=== PATIENT | male | born 1945 | race Caucasian/White ===

== ENCOUNTER 2023-08-25 09:12 | Outpatient (CLI) | payer OTHER, MEDICARE ==
[~2023-08-25 09:12] MED LIST: ASPI-10 PO; BUDE10.2 INH; CARV-50 PO; CHOL100017 PO; EMPA25TA PO; FURO-150 PO; GUAI100L37 PO; IODIXANOL 320 MG/ML INFUS..BTL 100ML IV ONE; IPRA4AER IH; KRIL1CAP21 PO; RIVA20TA PO; SACU1TAB7 PO; TAM75C PO; UBID200C18 PO
[2023-08-25 10:08] LABS: BASOPHILS % (AUTO) 0.8 % (0-1); EOSINOPHILS # (AUTO) 0.1 X10'3 (0-0.9); EOSINOPHILS % (AUTO) 2.3 % (0-6); HEMATOCRIT 42.6 % (42.0-52.0); HEMOGLOBIN 14.2 g/dl (14.0-17.9); LYMPHOCYTES # (AUTO) 1.1 X10'3 (1.1-4.8); LYMPHOCYTES % (AUTO) 19.2 % (21-51); MEAN CORPUSCULAR HEMOGLOBIN 30.3 PG (27.0-31.0); MEAN CORPUSCULAR HGB CONC 33.3 g/dL (33.0-36.5); MEAN CORPUSCULAR VOLUME 91.1 FL (78-98); MONOCYTES # (AUTO) 0.7 X10'3 (0-0.9); MONOCYTES % (AUTO) 12.1 % (2-12); NEUTROPHILS # (AUTO) 3.6 X10'3 (1.8-7.7); NEUTROPHILS % (AUTO) 65.6 % (42-75); PLATELET COUNT 201 X10'3 (140-440); RED BLOOD COUNT 4.68 X10'6 (4.70-6.10); RED CELL DISTRIBUTION WIDTH 15.3 % (11.5-14.5); WHITE BLOOD COUNT 5.5 X10'3 (4.5-11.0)
[2023-08-25] MEDS ORDERED: iohexol 350MG/ML 100ml bottle IV ONE (10:10)
[2023-08-25 10:17] LABS: APTT 42 SECONDS (22-32); INR 1.4 INR; PROTHROMBIN TIME 14.5 SECONDS (9.0-12.0)
[2023-08-25 10:18] LABS: ALANINE AMINOTRANSFERASE 30 U/L (12-78); ALBUMIN 3.4 G/DL (3.4-5.0); ALKALINE PHOSPHATASE 52 IU/L (46-116); ANION GAP 12 (8-16); ASPARTATE AMINO TRANSFERASE 20 U/L (10-37); BILIRUBIN,TOTAL 0.9 MG/DL (0.1-1.0); BLOOD UREA NITROGEN 16 MG/DL (7-18); BUN/CREATININE RATIO 18.6 (10.0-20.0); CALCIUM 8.3 MG/DL (8.5-10.1); CHLORIDE 105 MMOL/L (99-107); CREATININE 0.86 MG/DL (0.60-1.10); GLUCOSE 101 MG/DL (70-104); POTASSIUM 4.4 MMOL/L (3.5-5.1); SODIUM 142 MMOL/L (135-145); TOTAL PROTEIN 6.9 G/DL (6.4-8.2); eGFR 87 ML/MIN
[2023-09-19] MEDS ORDERED: MOME13HF8 INH (10:40)
[2023-09-19] MEDS ORDERED: ASCO500C17 PO (10:40)
[2023-09-19] MEDS ORDERED: ZINC220T3 PO (10:40)
[2023-09-19] MEDS ORDERED: ATOR40TA PO (10:40)
[2023-09-19] MEDS ORDERED: TIOT4MIS8 PO (10:40)
[2023-09-19] MEDS ORDERED: ALBU8HFA INH (10:40)
[2023-09-24] MEDS ORDERED: CHOL50004 PO (13:25)
[2023-09-24] MEDS ORDERED: EMPA10TA PO (13:25)
[2023-09-24] MEDS ORDERED: UBID300C3 PO (13:25)
[2023-09-24] MEDS ORDERED: KRIL500C PO (13:25)
== END 2023-08-25 23:59 | disposition home or self-care (01) ==
LOC: RAD 09:12
PROVIDERS: ATTEND Student in an Organized Health Care Education/Training Program
DX: I25.10 Atherosclerotic heart disease of native coronary artery without angina pectoris (principal); I48.91 Unspecified atrial fibrillation; I48.92 Unspecified atrial flutter
CPT/HCPCS: 36415; 75572; 80053; 85025; 85610; 85730; J3490; Q9967

== ENCOUNTER 2023-08-25 09:20 | Outpatient (CLI) | payer OTHER ==
[~2023-08-25 09:20] MED LIST changes: -IODIXANOL 320 MG/ML INFUS..BTL 100ML IV ONE
== END 2023-08-25 23:59 | disposition home or self-care (01) ==
LOC: CARD DIAG 09:20
PROVIDERS: ATTEND Chiropractor
DX: I08.8 Other rheumatic multiple valve diseases (principal); I25.10 Atherosclerotic heart disease of native coronary artery without angina pectoris
CPT/HCPCS: 93306

== ENCOUNTER 2023-11-04 11:27 | Day surgery (SDC) | payer OTHER, MEDICARE ==
[2023-11-04] VITALS (13 sets, daily range): BP systolic 110–144; BP diastolic 68–90; PULSE 62–84; RESP 11–18; TEMP 97.5; O2SAT 97–100
[~2023-11-04] VITALS: Ht 203.2 cm; Wt 74.2 kg
[~2023-11-04 11:27] MED LIST changes: +ALBU8HFA INH; +ASCO500C17 PO; -ASPI-10 PO; +ATOR40TA PO; -BUDE10.2 INH; -CHOL100017 PO; +CHOL50004 PO; +EMPA10TA PO; -EMPA25TA PO; -IPRA4AER IH; -KRIL1CAP21 PO; +KRIL500C PO; +MOME13HF8 INH; -TAM75C PO; +TIOT4MIS8 PO; +UBID300C3 PO; +ZINC220T3 PO
[2023-11-04 12:33] LABS: BASOPHILS % (AUTO) 0.7 % (0-1); EOSINOPHILS # (AUTO) 0.2 X10'3 (0-0.9); EOSINOPHILS % (AUTO) 2.3 % (0-6); HEMOGLOBIN 15.4 g/dl (14.0-17.9); LYMPHOCYTES # (AUTO) 1.3 X10'3 (1.1-4.8); LYMPHOCYTES % (AUTO) 19.8 % (21-51); MEAN CORPUSCULAR HEMOGLOBIN 30.5 PG (27.0-31.0); MEAN CORPUSCULAR HGB CONC 32.7 g/dL (33.0-36.5); MONOCYTES # (AUTO) 0.5 X10'3 (0-0.9); MONOCYTES % (AUTO) 8.2 % (2-12); NEUTROPHILS # (AUTO) 4.6 X10'3 (1.8-7.7); PLATELET COUNT 202 X10'3 (140-440); RED BLOOD COUNT 5.05 X10'6 (4.70-6.10); RED CELL DISTRIBUTION WIDTH 15.6 % (11.5-14.5); WHITE BLOOD COUNT 6.7 X10'3 (4.5-11.0)
[2023-11-04 12:40] LABS: ALBUMIN 3.9 G/DL (3.4-5.0); ANION GAP 8 (8-16); BLOOD UREA NITROGEN 15 MG/DL (7-18); BUN/CREATININE RATIO 18.3 (10.0-20.0); CHLORIDE 105 MMOL/L (99-107); CREATININE 0.82 MG/DL (0.60-1.10); GLUCOSE 99 MG/DL (70-104); POTASSIUM 4.3 MMOL/L (3.5-5.1); SODIUM 143 MMOL/L (135-145); TOTAL CARBON DIOXIDE 30.4 MMOL/L (24-32); eCRCL 82 ML/MIN; eGFR > 90 ML/MIN
[2023-11-04 12:47] LABS: APTT 36 SECONDS (22-32); INR 1.3 INR; PROTHROMBIN TIME 13.2 SECONDS (9.0-12.0)
[2023-11-04] MEDS: fentaNYL/PF 50MCG/1 ML 2ML syringe IV ONE (14:22)
[2023-11-04] MEDS: MIDAZolam 1mg/ml 10ml vial IV ONE (14:22)
[2023-11-04] MEDS: normal saline 1000ml 1,000 ML IV SCH (14:23)
== END 2023-11-04 15:25 | disposition home or self-care (01) ==
LOC: CARD DIAG 11:27 → SSTAY O 15:25
PROVIDERS: ATTEND Student in an Organized Health Care Education/Training Program
DX: I48.19 Other persistent atrial fibrillation (principal); I11.0 Hypertensive heart disease with heart failure; I50.22 Chronic systolic (congestive) heart failure; I25.10 Atherosclerotic heart disease of native coronary artery without angina pectoris; E11.9 Type 2 diabetes mellitus without complications; E78.5 Hyperlipidemia, unspecified; I42.9 Cardiomyopathy, unspecified; Z79.82 Long term (current) use of aspirin; Z79.899 Other long term (current) drug therapy
CPT/HCPCS: 36415; 80048; 82948; 85025; 85610; 85730; 93312; 93325; 94760; J2250; J3010; J7030; 96360

== ENCOUNTER 2024-08-09 13:03 | Emergency (ER) | payer OTHER, MEDICARE ==
[~2024-08-09] VITALS: Ht 172.7 cm; Wt 94.4 kg
[~2024-08-09 13:03] MED LIST changes: -ALBU8HFA INH; -GUAI100L37 PO; -UBID300C3 PO
[2024-08-09 16:48] LABS: BASOPHILS # (AUTO) 0.1 X10'3 (0-0.2); EOSINOPHILS # (AUTO) 0.2 X10'3 (0-0.9); EOSINOPHILS % (AUTO) 2.8 % (0-6); HEMATOCRIT 44.1 % (42.0-52.0); HEMOGLOBIN 14.8 g/dl (14.0-17.9); LYMPHOCYTES # (AUTO) 1.3 X10'3 (1.1-4.8); LYMPHOCYTES % (AUTO) 21.1 % (21-51); MEAN CORPUSCULAR HEMOGLOBIN 30.8 PG (27.0-31.0); MEAN CORPUSCULAR HGB CONC 33.5 g/dL (33.0-36.5); MEAN CORPUSCULAR VOLUME 91.7 FL (78-98); MEAN PLATELET VOLUME 7.1 FL (7.4-10.4); MONOCYTES # (AUTO) 0.5 X10'3 (0-0.9); MONOCYTES % (AUTO) 8.6 % (2-12); NEUTROPHILS % (AUTO) 66.5 % (42-75); PLATELET COUNT 216 X10'3 (140-440); RED BLOOD COUNT 4.81 X10'6 (4.70-6.10); RED CELL DISTRIBUTION WIDTH 15.9 % (11.5-14.5)
[2024-08-09] MEDS ORDERED: CEPH500C2 PO (17:06)
[2024-08-09 17:23] VITALS: BP 142/91; PULSE 69; RESP 16; TEMP 98.1; O2SAT 98
== END 2024-08-09 17:25 | disposition home or self-care (01) ==
LOC: ER 13:04
DX: L98.9 Disorder of the skin and subcutaneous tissue, unspecified (principal); I50.22 Chronic systolic (congestive) heart failure; E11.9 Type 2 diabetes mellitus without complications; E78.00 Pure hypercholesterolemia, unspecified; I11.0 Hypertensive heart disease with heart failure; I27.20 Pulmonary hypertension, unspecified; I48.91 Unspecified atrial fibrillation; J44.9 Chronic obstructive pulmonary disease, unspecified; M19.90 Unspecified osteoarthritis, unspecified site
CPT/HCPCS: 36415; 73140; 85025; 85651; 86140; 99284